=== PATIENT | male | born 1955 | race Caucasian/White ===

== ENCOUNTER 2022-04-10 06:46 | Day surgery (SDC) | payer OTHER ==
[~2022-04-10 06:46] MED LIST: CYCLOPENTOLATE 1% OPHTH DROPS 2 ML ONE; KETOROLAC 0.45% OPHTH DROPS ONE; PHENYLEPHRINE 2.5% OPHTH 2 ML DROPS ONE; PROPARACAINE 0.5% OPHTH DROPS 15 ML ONE
[2022-04-10] MEDS ORDERED: LACTATED RINGERS 1,000 ML IV ONE ×2 (06:50→08:42)
--- NOTE | 2022-04-10 07:14 | ANESTHESIA ---
Pre-Anesthesia VS, & Labs - Diagnosis L senile combined cataract - Procedure L cataract extraction with IOL Vital Signs: Temp Pulse Resp BP Pulse Ox O2 Flow Rate 37.1 C 51 L 16 166/72 H 100 04/10/22 07:07 04/10/22 07:07 04/10/22 07:07 04/10/22 07:07 04/10/22 07:07 Height: 6 ft Weight (kg): 120 kg Body Mass Index: 35.9 BMI Classification: Obese - NPO >8 hours Home Medications and Allergies Home Medications: Ambulatory Orders Aspirin [[place] Aspirin] 81 mg PO DAILY 04/09/22 Lisinopril [Zestril] 20 mg PO DAILY 04/09/22 Aspirin [[place] Aspirin] 81 mg PO DAILY 04/09/22 Lisinopril [Zestril] 20 mg PO DAILY 04/09/22 Allergies/Adverse Reactions: Allergies Allergy/AdvReac Type Severity Reaction Status Date / Time Penicillins Allergy Rash Verified 04/09/22 12:48 Anes History & Medical History - Anesthetic History Anesthesia Complications: reports: No previous complications Family history of Anesthesia Complications: Denies Family history of Malignant Hyperthermia: Denies - Medical History Cardiovascular: reports: Hypertension, Peripheral Vascular Disease Pulmonary: reports: None Gastrointestinal: reports: None Urinary: reports: Other Musculoskeletal: reports: None Endocrine/Autoimmune: reports: None Skin: reports: None - Surgical History Eyes Ears Nose Throat (EENT): reports: Tonsil/Adenoidectomy Orthopedic: reports: Other Exam General: Alert Dental: WNL Mouth Openin Fingerbreadth Neck Mobility: Normal Mallampati classification: II Thyromental Distance: 4-6 cm Respiratory: Normal breath sounds Cardiovascular: Regular rate Neurological: Normal speech Mental/Cognitive Status: Alert/Oriented X3 Cognitive Status: Within normal limits Plan Anesthesia Type: MAC Consent for Procedure(s) Verified and Reviewed: Yes Code Status: Attempt Resuscitation ASA classification: 2-Mild systemic disease Is this case an emergency?: No
[2022-04-10] MEDS ORDERED: TRIAMCIN/MOXIFLOX OPHTHALMIC 0.6 ML VIAL IO ONE ×3 (08:00→08:28)
[2022-04-10] MEDS ORDERED: EPINEPHrine 1 MG/ML AMP ONE (08:00)
[2022-04-10] MEDS ORDERED: MIDAZOLAM 2 MG/2 ML VIAL ONE (08:00)
[2022-04-10] MEDS ORDERED: TIMOLOL 0.5% OPHTH DROPS ONE (08:00)
[2022-04-10] MEDS ORDERED: BRIMONIDINE 0.2% OPHTH DROPS 5 ML ONE (08:00)
[2022-04-10] MEDS ORDERED: VANCOMYCIN OPHTH (TOPICAL) 10 MG/ML SYRINGE ONE (08:01)
[2022-04-10] MEDS ORDERED: BSS/LIDOCAINE/EPINEPHRINE 1 ML VIAL ONE (08:01)
[2022-04-10] MEDS ORDERED: TRYPAN BLUE 0.5 ML SYRINGE IO ONE ×2 (08:15→08:28)
[2022-04-10] MEDS ORDERED: GLYCOPYRROLATE 1 MG/5 ML VIAL ONE (08:24)
[2022-04-10] MEDS ORDERED: TIMOLOL 0.5% OPHTH DROPS OPTH ONE (08:27)
[2022-04-10] MEDS ORDERED: EPINEPHrine 1 MG/ML AMP IR ONE (08:27)
[2022-04-10] MEDS ORDERED: BRIMONIDINE 0.2% OPHTH DROPS 5 ML OPTH ONE (08:27)
[2022-04-10] MEDS ORDERED: VANCOMYCIN OPHTH (TOPICAL) 10 MG/ML SYRINGE TOP ONE (08:28)
[2022-04-10] MEDS ORDERED: BSS/LIDOCAINE/EPINEPHRINE 1 ML SYRINGE IO ONE (08:28)
[2022-04-10] MEDS ORDERED: PROPARACAINE 0.5% OPHTH DROPS 15 ML EACHEYE ONE (08:28)
[2022-04-10 09:00] VITALS: BP 142/78
--- NOTE | 2022-04-10 09:02 | OPERATIVE REPORT ---
Operative Report - Other Other Information/Narrative: Date of Surgery: Preop Dx: Complex, visually significant cataract left eye. Complex due to use of Trypan Blue to stain the anterior capsule prior to capsulorhexis because of the lack of a red reflex. This was the first cataract surgery. Postop Dx: Same Procedure: Phacoemulsification with posterior chamber intraocular lens implant left eye Surgeon: Dr. Francisco Smith Anesthesia: Monitored anesthesia care Complications: None Operative Indications: This is a 66-year-old M with progressive vision loss in the left eye due to 4+ nuclear sclerotic cataract. Best corrected visual acuity was 20/630 with glare to light perception vision in the left eye. Indications for surgery were: - Overall decrease in vision - Difficulty seeing words on a computer screen - Difficulty reading - Difficulty seeing words, closed captions, or game scores on TV - Difficulty seeing street signs - Difficulty driving in low light or at night - Difficulty driving at night because of headlights from other vehicles - Difficulty with glare or bright lights in any situation The patient was consented at length concerning the risks and benefits of cataract surgery after which the patient expressed a desire to proceed with surgery. Operative Procedure: The patient was taken into OR#3 and placed under monitored anesthesia care. A surgical time-out was conducted confirming correct patient, correct procedure, and correct surgical site. The patient was given topical anesthesia and then prepped and draped in the usual sterile fashion. The eye was entered at the 6 and 3 oclock positions. Intracameral Shugarcaine was injected into the anterior chamber followed by an air bubble. Under the air bubble Trypan Blue was injected in order to stain the capsule as there was a lack of a red reflex needed to perform the capsulotomy. The air bubble and Trypan Blue were flushed from the chamber using balance salt solution. Dispersive viscoelastic was injected into the anterior chamber. A discontinuous-tear curvilinear capsulorhexis was performed as the capsule was very thin and brittle and wanted to run out easily. The initial hemirhexis had to be restarted nasally and completed temporally. The second hemirhexis was started nasally, pulled counterclockwise inferiorly, and then completed temporally. The nucleus was hydrodissected and phacoemulsified. The nucleus was quite dense. The cortex was evacuated using automated infusion and aspiration. A cohesive viscoelastic was injected into the capsular bag and a 21.0 diopter intraocular lens was inserted into the bag. Infusion and aspiration were used to evacuate the viscoelastic materials from the eye. The wounds were hydrated and the eye inflated to physiologic pressure using balanced salt solution. Approximately 0.25ml of a mixture of triamcinolone and moxifloxacin was injected trans-sclerally into the vitreous in the inferotemporal quadrant using a 30 gauge cannula. An additional 0.55ml of a mixture of triamcinolone and moxifloxacin was injected subconjunctivally in the superior quadrant for infection and inflammation prophylaxis. Wound integrity was checked with Weck- Juanis sponges. The patient was taken from the operating room in good condition and given post-op instructions.
--- NOTE | 2022-04-10 13:39 | ANESTHESIA POST OP EVALUATION ---
Anesthesia Post Eval - Post Anesthesia Eval Vitals: Last Vital Signs Temp 36.6 C 04/10/22 09:00 Pulse 50 L 04/10/22 09:00 Resp 16 04/10/22 09:00 BP 142/78 H 04/10/22 09:00 Pulse Ox 100 04/10/22 09:00 O2 Flow Rate CV Function Including HR & BP: Stable Pain Control: Satisfactory Nausea & Vomiting: Negative Mental Status: Baseline Respiratory Status: Airway Patent Hydration Status: Satisfactory Anesthesia Complications: None
== END 2022-04-10 06:47 | disposition home or self-care (01) ==
LOC: SDS 06:46
PROVIDERS: ATTEND Ophthalmology
DX: H25.812 Combined forms of age-related cataract, left eye (principal); I10 Essential (primary) hypertension; E66.9 Obesity, unspecified; Z68.35 Body mass index [BMI] 35.0-35.9, adult; Z79.82 Long term (current) use of aspirin; Z79.899 Other long term (current) drug therapy
CPT/HCPCS: 66984; A9270; J3490; J7120

== ENCOUNTER 2025-04-04 14:39 | Observation (INO) ==
--- NOTE | 2025-04-04 14:41 | ED Physician Documentation ---
History of Present Illness Stated complaint Stated Complaint: GEN WEAKNESS Chief complaint Chief Complaint: General Additonal information Additional information: 69-year-old male with history of lung cancer with recent diagnosis of bladder cancer with mets patient of [facility] presents to emergency department for generalized weakness. Patient is brought in via EMS his caregiver called 9 for concerns of increased generalized weakness. Patient had chemo about a week ago and since then has been having pretty persistent diarrhea. He is unable to quantify how many episodes of diarrhea a day he has been having but he is not able to eat or drink anything he denies any fevers or chills no urinary symptoms mild nausea no vomiting with decreased p.o. intake no specific localized areas of pain just endorses some generalized bodyaches and pains. Meds/Allgy Home Medications Ambulatory Orders Medication Instructions Recorded Confirmed aspirin 81 mg chewable tablet (St 81 mg PO DAILY 04/0901/02/25 Lon Aspirin) acetaminophen 500 mg tablet 1,000 mg PO Q6H PRN 01/02/25 oxybutynin chloride 10 mg 10 mg PO QDAY 04/21/2401/02 tablet,extended release 24 hr simvastatin 40 mg tablet 40 mg PO QDAY 04/21/2401/02 wheelchairs 04/21/24 01/02/25 lisinopril 40 mg tablet 40 mg PO QDAY 12/06/2401/02 Allergies Allergies Allergy/AdvReac Type Severity Reaction Status Date / Time hydrocodone (From Vicodin) Allergy Severe Rash Verified 04/04/25 14:44 Penicillins Allergy Rash Verified 04/04/25 14:44 PFSH Active Problems All Active Problems (Updated 04/04/25 @ 18:16 by Gilberto Wheat DO) Abnormal urinalysis (Acute) Complication of chemotherapy (Acute) Diarrhea (Acute) DB (acute kidney injury) (Acute) DB (acute kidney injury) (Acute) Cerumen impaction (Acute) Right shoulder pain (Acute) Hypertension (Acute) Claudication of lower extremity (Acute) Bladder spasm (Chronic) Peripheral artery disease (Chronic) Bladder cancer (Chronic) Medical History Medical History (Updated 04/04/25 @ 18:16 by Gilberto Wheat DO) Malignant neoplasm of upper lobe, left bronchus or lung (~02/2024) tx via radiation, no biopsy done Obesity, class 1 Nephrolithiasis Stable angina Hx of nicotine dependence GERD (gastroesophageal reflux disease) Skin tag irritated/inflammed Risk for falls Adenocarcinoma of left lung Bilateral leg edema History of kidney stones CAD (coronary artery disease) Surgical History Surgical History History of lung surgery 11/24/22 left VATS wedge resection of stage 1A lung adenocarcinoma (Dr. Uribe) 03/23/23 right upper lobe wedge resection, LN sampling, thoracotomy, invasive adenocarcinoma (Dr. Uribe) History of transurethral resection of bladder tumor (TURBT) 04/22/23 right TURBT invasive bladder CA, clear History of bladder surgery bladder cancer resection x 2 (03/07/22, 03/06/23) History of surgical removal of ganglion cyst R foot ganglion cyst removal Hx of hemorrhoids Hx of hemorrhoids sx many years ago Hx of bilateral cataract extraction cataract sx b/l, Dr. Gurvinder Smith History of bronchoscopy 08/2022 bronchoscopy at [facility] Family History Family History Mother Heart disease CAD (coronary artery disease) Father Heart disease CAD (coronary artery disease) Social History Social History (Updated 01/02/25 @ 13:16 by Clifton Claudio, COLBY, [employer]EM[employer], [employer]INGS [employer]) Smoking Status: Former smoker If you are a former smoker, when did you quit? (Date/Year): 2011 How many cigarettes a day do you smoke? (20 cigarettes=1 Pk): 30 Second hand tobacco smoke exposure: No Do you dip or chew tobacco?: No Do you vape?: No Living arrangement: At home Marital Status: Living Condition: With spouse/s.o. Support Person: Yes Physical Activity: None Level: Assisted Home Mobility Equipment: Walker Do you feel safe in your home environment?: Yes History of physical, verbal, emotional, or financial abuse?: No ETOH Use: None Substance Use: denies use Exam Exam Vital Signs: Vital Signs x48h Temp Pulse Resp BP Pulse Ox 04/04/25 14:42 36.3 C L 93 19 142/71 H 97 Constitutional abnormal general appearance (appears older than stated age), no apparent distress, average body habitus, no limitations and alert HENMT normocephalic Eyes PERRL Neck/C-Spine visual inspection normal Lymph no lymphadenopathy noted Chest inspection of chest normal Respiratory breath sounds equal bilaterally and normal respiratory effort Cardiovascular normal heart rate noted Gastrointestinal abdomen normal to inspection and abdomen soft to palpation Genitourinary no CVA tenderness and bladder normal to palpation Back/Pelvis spine normal to inspection Extremities normal to inspection Neurology adult care manager II-XII intact Skin skin color normal Results Vitals Vitals: Vital Signs - 24 hr 04/04/25 14:42 Temperature 36.3 C L Temperature Source Temporal Artery Scan Pulse Rate 93 Respiratory Rate 19 Blood Pressure 142/71 H O2 Saturation 97 O2 Source Room air Pain Intensity 0 Oxygen O2 Source Room air Labs Labs: Laboratory Tests 04/04/25 15:31 WBC 5.7 RBC 4.66 L Hgb 14.8 Hct 43.5 MCV 93.3 MCH 31.8 H MCHC 34.0 RDW 14.8 Plt Count 40 L MPV 10.3 Neut # (Auto) 4.9 Lymph # (Auto) 0.5 L [place] # (Auto) 0.2 Eos # (Auto) 0.0 Baso # (Auto) 0.0 Absolute Nucleated RBC 0.00 Nucleated RBC % 0.0 Sodium 135 Potassium 3.9 Chloride 102 Carbon Dioxide 23 Anion Gap 10.0 BUN 64 H Creatinine 3.4 H Estimated GFR (MDRD) 18 L Glucose 164 H Calcium 8.0 L Magnesium 2.5 H Total Bilirubin 1.0 AST 324 H ALT 93 H Alkaline Phosphatase 45 Total Protein 6.1 L Albumin 3.3 Globulin 2.8 Albumin/Globulin Ratio 1.2 PD Medical Decision Making ED course ED course: 69-year-old male with metastatic lung and bladder cancer ([facility] patient) presents with severe generalized weakness and persistent diarrhea following recent chemotherapy, leading to severe volume depletion and inability to maintain oral intake. Laboratory findings reveal a severe Acute Kidney Injury (Creatinine 3.4), profound Thrombocytopenia (Plt 40), and significant Transaminitis (AST 324, ALT 93), along with associated electrolyte derangements (hypocalcemia). The patients acute presentation is attributed to severe dehydration (prerenal DB) superimposed on likely chemotherapy-related multi- organ toxicity (hematologic and hepatic). Given the nature of this multi-organ injury, the patient requires immediate admission for aggressive supportive care, fluid resuscitation, and specialized management of chemotherapy complications. Dr. Wheat has graciously agreed to accept the patient here for further hospitalization and fluid resuscitation and patient is agreeable to stay. He received 1L here in ER. Discharge Plan Discharge Patient Disposition: 66 [facility] DC/Xfer Clinical Impression: DB (acute kidney injury), Diarrhea, Complication of chemotherapy Interventions: ED Admission Assessment Last Done: 04/04/25 17:06 Vitals documented within 30 minutes of discharge?: Yes
--- OUTSIDE RECORDS SUMMARY | 2025-04-04 14:56 | EXTERNAL MEDICAL SUMMARY RPT | Continuity of Care Document ---
Author Organization [facility] Address [address] [place] [id number] Phone Problems date description facility 2025-02-09 00:06 Malignant neoplasm of bladder, unspecified [facility] Results/Labs test date facility value unit notes Result panel 1 WBC,URINE 2025-02-08 16:35 [facility] 0-3 /hpf (missing) UROBILINOGEN,URIN E 2025-02-08 16:35 [facility] 0.2 (NORMAL) e.u./dl (missing) SPECIFIC GRAVITY,URINE 2025-02-08 16:35 [facility] 1.030 (missing) (missing) PH,URINE 2025-02-08 16:35 [facility] 6.0 ph (missing) URINE MICROSCOPIC INDICATED? 2025-02-08 16:35 [facility] INDICATED (missing) (missing) AMORPHOUS SEDIMENT,UR 2025-02-08 16:35 [facility] Marked /lpf (missing) LEUKOCYTE ESTERASE, URINE 2025-02-08 16:35 [facility] NEGATIVE (missing) (missing) NITRITE,URINE 2025-02-08 16:35 [facility] NEGATIVE (missing) (missing) BILIRUBIN,URINE 2025-02-08 16:35 [facility] NEGATIVE (missing) Bilirubin can be influenced by color interference. Please correlate positive results with clinical presentation GLUCOSE, URINE (UA) 2025-02-08 16:35 [facility] NEGATIVE mg/dl (missing) KETONES,URINE (UA) 2025-02-08 16:35 [facility] NEGATIVE mg/dl (missing) PROTEIN,URINE 2025-02-08 16:35 [facility] NEGATIVE mg/dl (missing) UR CULTURE IF IND 2025-02-08 16:35 [facility] NOT INDICATED (missing) (missing) RBC,URINE 2025-02-08 16:35 [facility] None Seen /hpf (missing) SQUAMOUS EPITHELIAL CELL,UR 2025-02-08 16:35 [facility] RARE Squamous (missing) (missing) BACTERIA,URINE 2025-02-08 16:35 [facility] Rare /hpf (missing) OCCULT BLOOD,URINE 2025-02-08 16:35 [facility] TRACE (missing) (missing) CLARITY,URINE 2025-02-08 16:35 [facility] TURBID (missing) (missing) COLOR,URINE 2025-02-08 16:35 [facility] YELLOW (missing) URINE RANDOM Social History date description facility
[2025-04-04 15:44] LABS: HCT - HEMATOCRIT 43.5 % (42.0-52.0); HGB - HEMOGLOBIN 14.8 g/dL (14.0-18.0); MEAN PLATELET VOLUME 10.3 fL (7.4-11.4); NRBC ABSOLUTE COUNT (AUTO) 0.00 x10^3/uL; NUCLEATED RED BLOOD CELLS AUTO 0.0 /100WBC; PLT - PLATELET COUNT 40 10^3/uL (130-450); RED CELL DISTRIBUTION WIDTH 14.8 % (12.0-15.0)
[2025-04-04 15:57] LABS: ALT ALANINE AMINOTRANSFERASE 93.0 IU/L (10-60); AST ASPARTATE AMINOTRANSFERASE 324.0 IU/L (10-42); BUN - BLOOD UREA NITROGEN 64.0 mg/dL (6-20); CARBON DIOXIDE - CO2 23.0 mmol/L (21-32); CREATININE 3.4 mg/dL (0.6-1.3); GFR - MDRD 18.0 (>89)
--- NOTE | 2025-04-04 16:39 | HISTORY & PHYSICAL EXAMINATION ---
Chief Complaint Chief Complaint Chief Complaint: Weakness History of Present Illness Admitted From Admitted From:: ED History Obtained From Records Reviewed: [facility] History obtained from: EMR, Patient, ED provider Exam Limitations: Patient is encephalopathic History of Present Illness HPI Comment/Other: This is a 69-year-old male with a past medical history of recurrent high-grade urothelial carcinoma of the bladder on treatment and, CAD, PAD, T2DM, and HTN who presents with generalized weakness. He is found in the ED to have DB. His history is difficult to elicit as he is here alone. He is slow to respond to most questions. He phonates very weakly. He appears withdrawn versus depressed. Patient tells me that he started feeling unwell approximately 6 weeks ago. He is unclear on why he chose now to come into the hospital. He says that he normally feels poorly after he receives his chemotherapy treatments for his bladder cancer. These happen every 3 weeks per his report. He does not normally have diarrhea following his treatments. He has been having diarrhea at this time. He is unable to articulate how he receives his chemotherapy treatments. He gets them at the [facility]. He says that they supply transportation to his appointments. Notably [facility], he is perhaps getting [facility]. He endorses some intermittent shaking chills over the preceding days. Denies zachery fevers, chest pain, palpitations, dyspnea, abdominal pain or dysuria. He denies any difficulty with urination. Meds/Allgy Home Medications Ambulatory Orders Medication Instructions Recorded Confirmed aspirin 81 mg chewable tablet (St 81 mg PO DAILY 04/0901/02/25 Lon Aspirin) acetaminophen 500 mg tablet 1,000 mg PO Q6H PRN 01/02/25 oxybutynin chloride 10 mg 10 mg PO QDAY 04/21/2401/02 tablet,extended release 24 hr simvastatin 40 mg tablet 40 mg PO QDAY 04/21/2401/02 wheelchairs 04/21/24 01/02/25 lisinopril 40 mg tablet 40 mg PO QDAY 12/06/2401/02 Allergies Allergies Allergy/AdvReac Type Severity Reaction Status Date / Time hydrocodone (From Vicodin) Allergy Severe Rash Verified 04/04/25 14:44 Penicillins Allergy Rash Verified 04/04/25 14:44 PFSH Active Problems All Active Problems (Updated 04/04/25 @ 18:16 by Gilberto Wheat DO) Abnormal urinalysis (Acute) Complication of chemotherapy (Acute) Diarrhea (Acute) DB (acute kidney injury) (Acute) DB (acute kidney injury) (Acute) Cerumen impaction (Acute) Right shoulder pain (Acute) Hypertension (Acute) Claudication of lower extremity (Acute) Bladder spasm (Chronic) Peripheral artery disease (Chronic) Bladder cancer (Chronic) Medical History Medical History (Updated 04/04/25 @ 18:16 by Gilberto Wheat, ) Malignant neoplasm of upper lobe, left bronchus or lung (~02/2024) tx via radiation, no biopsy done Obesity, class 1 Nephrolithiasis Stable angina Hx of nicotine dependence GERD (gastroesophageal reflux disease) Skin tag irritated/inflammed Risk for falls Adenocarcinoma of left lung Bilateral leg edema History of kidney stones CAD (coronary artery disease) Surgical History Surgical History History of lung surgery 11/24/22 left VATS wedge resection of stage 1A lung adenocarcinoma (Dr. Uribe) 03/23/23 right upper lobe wedge resection, LN sampling, thoracotomy, invasive adenocarcinoma (Dr. Uribe) History of transurethral resection of bladder tumor (TURBT) 04/22/23 right TURBT invasive bladder CA, clear History of bladder surgery bladder cancer resection x 2 (03/07/22, 03/06/23) History of surgical removal of ganglion cyst R foot ganglion cyst removal Hx of hemorrhoids Hx of hemorrhoids sx many years ago Hx of bilateral cataract extraction cataract sx b/l, Dr. Gurvinder Smith History of bronchoscopy 08/2022 bronchoscopy at [facility] Family History Family History Mother Heart disease CAD (coronary artery disease) Father Heart disease CAD (coronary artery disease) Social History Social History (Updated 01/02/25 @ 13:16 by Clifton Claudio, DNP, SALES SUPPORT COORDINATOR, GUIDANCE CONSULTANT) Smoking Status: Former smoker If you are a former smoker, when did you quit? (Date/Year): 2011 How many cigarettes a day do you smoke? (20 cigarettes=1 Pk): 30 Second hand tobacco smoke exposure: No Do you dip or chew tobacco?: No Do you vape?: No Living arrangement: At home Marital Status: Living Condition: With spouse/s.o. Support Person: Yes Physical Activity: None Level: Independent Do you feel safe in your home environment?: Yes History of physical, verbal, emotional, or financial abuse?: No ETOH Use: None Substance Use: denies use Review of Systems Status of ROS: 10 or more systems reviewed and unremarkable except as noted in history and below Exam Exam Vital Signs: Vital Signs x48h Temp Pulse Pulse Resp BP BP Pulse Ox 04/04/25 17:29 36.6 C 89 30 H 143/67 H 92 04/04/25 16:39 36.8 C 91 16 162/72 H 96 04/04/25 14:42 36.3 C L 93 19 142/71 H 97 GEN: No acute distress, lying in bed, blank stare, orients to voice HEENT: NC/AT, normal appearance of external ears and nose. Hearing baseline. Cardiac: Regular rate and rhythm, no murmurs. No visible JVP elevation at 30 degrees Pulm: Lungs CTA bilaterally, no cough, no wheezes. Coarse rhonchi present in the left lung chaudhry. Abdomen: Obese, soft, nontender abdomen. No rebound tenderness or guarding. Suprapubic tenderness present Extremities: Moves all 4 extremities equally. Normal tone. Neuro: Face symmetric, CN II through XII intact grossly. Speech fluent. No focal neurologic deficits. Strength 5/5 at the hip bilaterally. Strength 5/5 at the shoulders bilaterally Psych: Mood euthymic with flattened affect. Questionable historian. Oriented to self, time, location, and situation Conclusion/Plan Problem List (1) DB (acute kidney injury): Plan: No prior labs in his record, including checking [place]. However the patient does not carry a diagnosis of CKD. His creatinine on admission is 3.4. His history of diarrhea is suggestive of a prerenal etiology. Other etiologies may include ATN/AIN from chemotherapy. Possible septicemia. He has a history of nephrolithiasis, but denies any symptoms. - Discussed with ED provider, admitted patient to observation status - Will check urine sodium, urine creatinine - Check urine protein quant - UA collected by ED - Will empirically start on LR at 100 mL/h - Follow-up BMP a.m. 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 Hemodynamically stable. Pulse 89, BP 143/67. Likely related to his chemotherapy. Does not recall taking any recent antibiotics. - Will get C. difficile studies - Fluids as above - Loperamide once C. difficile negative (3) Abnormal urinalysis: Plan: Patient with concern for cystitis. He has large leuk esterase, blood, and many bacteria seen on his UA collected in the ED. Notably there is also high protein, granular casts, tubular epithelial cells. Nitrite negative. Other than his bacteria, this may be all resultant of dehydration versus effects of chemotherapy in the setting of his DB. - Started empirically on ceftriaxone - Given systemic symptoms will get blood cultures - Follow-up CBC and BMP a.m. - Further urine studies as above - Follow-up urine culture - Will get chest x-ray to round out infectious workup given his rhonchi in the left lung chaudhry (4) Bladder cancer: Plan: Patient with longstanding history of bladder cancer. Apparently recurrent. He follows with urology and oncology at the [facility]. He is on treatment and has been over the last 6 weeks. He is unclear on what his treatment is. - Requested to get records from - Suspect that his abnormal UA may be artifact from his treatment. Qualifiers: Bladder location: unspecified site Qualified Code(s): C67.9 - Malignant neoplasm of bladder, unspecified (5) Peripheral artery disease: Plan: History of peripheral arterial disease, per outside records from April of last year it apparently worsened on aspirin. Unclear if he received surgical intervention. Await med rec Reasonable to resume aspirin and statin in the morning (6) CAD (coronary artery disease): Plan: Patient denies any chest pain or palpitations. He has no anginal equivalents. He has a history of CAD, but had an angiogram conducted in August of this year with minimal occlusion. Suspect nonocclusive CAD. - Continue ASA and statin as above (7) Hypertension: Plan: Patient is mildly hypertensive, 143/67. Appears he may be on lisinopril 40 mg daily. Await med rec Hold off on starting antihypertensives at this time Avoid treating asymptomatic hypertension in the hospitalized patient per ACC guidelines Qualifiers: Hypertension type: primary hypertension Qualified Code(s): I10 - Essential (primary) hypertension (8) Adenocarcinoma of left lung: Plan: Patient with history of left lung cancer in the upper lung per his outpatient medical records. He apparently had resection of this in 2022. History of smoking. - Noted Plan Patient was discussed with the ED, and decision was made to admit the patient. With his history of bladder cancer, he has a chronic illness that poses a threat to life and bodily function. His DB poses a threat to ongoing renal function. Tried to reach his twice by phone, her phone goes directly to [employer]. His son is listed on some of his outpatient records but no phone numbers available. Patient is unable to tell me his son's phone number. Lab Results 04/04/25 15:31 04/04/25 15:31
[2025-04-04 17:04] LABS: GLUCOSE, URINE (UA) NEGATIVE (NEGATIVE); KETONES,URINE (UA) NEGATIVE (NEGATIVE); OCCULT BLOOD,URINE LARGE (NEGATIVE)
[2025-04-04 17:14] LABS: AMORPHOUS SEDIMENT,UR Marked /LPF; SQUAMOUS EPITHELIAL CELL,UR FEW Squamous (<= Few); WBC CLUMPS,URINE PRESENT
[2025-04-04] MEDS ORDERED: SODIUM CHLORIDE FLUSH 0.9% 10 ML SYRINGE IVP PRN (17:29)
[2025-04-04] MEDS ORDERED: ONDANSETRON ODT 4 MG TABLET TL PRN (17:29)
[2025-04-04] MEDS: ACETAMINOPHEN 325 MG TABLET PO PRN (18:30)
[2025-04-04] MEDS: LACTATED RINGERS 1,000 ML IV SCH (18:31)
[2025-04-04] MEDS: SODIUM CHLORIDE FLUSH 0.9% 10 ML SYRINGE IVP SCH (18:31)
[2025-04-04] MEDS: cefTRIAXone 2 GM in SODIUM CHLORIDE 0.9% MINIBAG 100 ML IV STA (18:55)
[2025-04-04 19:13] LABS: TOTAL PROTEIN,URINE RANDOM 360.0 mg/dL
--- NOTE | 2025-04-04 20:23 | XRAY Report ---
PROCEDURE: XR Chest 1V INDICATIONS: Ronchi in Left lung TECHNIQUE: One view of the chest was acquired. COMPARISON: None. FINDINGS: Surgical changes and devices: None. Lungs and pleura: No pleural effusions or pneumothorax. Mild likely linear atelectasis versus scarring of the left mid/upper lung field. Otherwise, the lungs appear clear. Mediastinum: Mediastinal contours appear normal. Heart size is normal. Bones and chest wall: No suspicious bony lesions. Overlying soft tissues appear unremarkable. IMPRESSION: No acute cardiopulmonary process. Mild likely linear atelectasis versus scarring of the left mid/upper lung field. Recommend follow-up radiograph to assess stability. Reviewed by: Austyn Ramirez MD on 04/04/2025 8:20 PM PST Approved by: Austyn Ramirez MD on 04/04/2025 8:20 PM PST Station ID: [id number]
[2025-04-04] MEDS: ATORVASTATIN 10 MG TABLET PO SCH (20:49)
[2025-04-04] MEDS: HEPARIN 5,000 UNIT/ML VIAL SUBQ SCH (20:49)
[2025-04-04] MEDS: oxyCODONE 5 MG TABLET PO PRN (21:29)
[2025-04-05] MEDS: ONDANSETRON 4 MG/2 ML VIAL IVP PRN (00:24)
--- NOTE | 2025-04-05 01:32 | PROVIDER PROGRESS NOTE ---
Drapery Counselor Note Drapery Counselor Note Drapery Counselor Note: per nurse "PT, 69-year-old male , admitted with acute kidney injury. This RN just wanted to update on pt's recent assessment. Pt appeared to have decreased orientation with an intermittent blank stare, decreased eye movements (tracking slowly) and had complaining of chest pain. However, his answers were inconsistent and was changing answers with every question. Pt denies any pain at time and this RN noted pt had Oxycodone @ 2129. Last vitals 153/67, 97, 94% RA, resp 28. Do you want any labs drawn or other interventions. Please input any new orders if needed. Thank you" ct head ammonia
--- NOTE | 2025-04-05 02:01 | CT Report ---
PROCEDURE: CT Head WO INDICATIONS: ams TECHNIQUE: CT of the head was performed, without intravenous contrast. Reformats: Coronal and sagittal. For radiation dose reduction, the following was used: automated exposure control, adjustment of mA and/or kV according to patient size. COMPARISON: None. FINDINGS: Image quality: Diagnostic. The ventricular system and cortical sulci demonstrate atrophy, consistent for patient's stated age. There are areas of hypodensity in the periventricular and subcortical white matter. There is no acute intra or extra-axial fluid collection. No acute hemorrhage, mass lesion or midline shift. Brainstem is unremarkable. Globes are symmetrical. Sinuses are aerated. Osseous structures are intact. IMPRESSION: 1. No acute intracranial process. 2. Mild atrophy and chronic microvascular ischemic changes. Reviewed by: Padmini Cummins MD on 04/05/2025 1:58 AM [facility] Approved by: Padmini Cummins MD on 04/05/2025 1:58 AM [facility] Station ID: [id number]
--- NOTE | 2025-04-05 04:08 | PROVIDER PROGRESS NOTE ---
Tour Coordinator Note Tour Coordinator Note Tour Coordinator Note: per rn " [id number] [address] GRINDER reported to this RN that pt had bilateral leg twitching for about 30 seconds continues to have intermittent leg twitching. Still has blank stare but not able to answer questions. Noted change in pt vitals. HR 101, 93% on 2LNC BP 129/68, Respirations 32, temp is 38.3. Pt breathing shallow. Can we please get an order for blood cultures, CBC, lactic acid, Mg, and Ca. Would you also like a repeat chest x ray? Please see UA was positive and previously had 1 dose of rocephin in ED. Please input any new interventions and orders." repeat labs as per above cxr, resp viral panel as well repeat ua rocephin x [address] head without acute findings neuro checks ordered as well
[2025-04-05] MEDS: AZITHROMYCIN INJ 500 MG in SODIUM CHLORIDE 0.9% 250 ML IV STA (04:31)
[2025-04-05] MEDS: cefTRIAXone 1 GM VIAL IM STA (04:39)
[2025-04-05 04:42] LABS: HCT - HEMATOCRIT 39.9 % (42.0-52.0); HGB - HEMOGLOBIN 13.8 g/dL (14.0-18.0); MEAN PLATELET VOLUME 11.6 fL (7.4-11.4); NRBC ABSOLUTE COUNT (AUTO) 0.00 x10^3/uL; NUCLEATED RED BLOOD CELLS AUTO 0.0 /100WBC; PLT - PLATELET COUNT 38 10^3/uL (130-450); RED CELL DISTRIBUTION WIDTH 14.8 % (12.0-15.0)
[2025-04-05 04:53] LABS: ALT ALANINE AMINOTRANSFERASE 87 IU/L (10-60); AST ASPARTATE AMINOTRANSFERASE 287 IU/L (10-42); BUN - BLOOD UREA NITROGEN 69 mg/dL (6-20); CARBON DIOXIDE - CO2 19 mmol/L (21-32); CREATININE 4.0 mg/dL (0.6-1.3); GFR - MDRD 15 (>89); IONIZED CALCIUM IF INDICATED YES
[2025-04-05 05:08] LABS: VBG PH 7.442 (7.31-7.41)
[2025-04-05 05:25] LABS: INFLUENZA A- RESP PCR PANEL NOT DETECTED; INFLUENZA B - RESP PCR PANEL NOT DETECTED; RSV- RESP PCR PANEL NOT DETECTED; SARS-CoV-2 -RESP PCR PANEL NOT DETECTED
[2025-04-05 05:57] LABS: HCT - HEMATOCRIT 38.2 % (42.0-52.0); HGB - HEMOGLOBIN 13.0 g/dL (14.0-18.0); MEAN PLATELET VOLUME 11.8 fL (7.4-11.4); NRBC ABSOLUTE COUNT (AUTO) 0.00 x10^3/uL; NUCLEATED RED BLOOD CELLS AUTO 0.0 /100WBC; RED CELL DISTRIBUTION WIDTH 15.0 % (12.0-15.0)
[2025-04-05 06:05] LABS: PLT - PLATELET COUNT 35 10^3/uL (130-450)
[2025-04-05 06:12] LABS: BUN - BLOOD UREA NITROGEN 70.0 mg/dL (6-20); CARBON DIOXIDE - CO2 19.0 mmol/L (21-32); CREATININE 4.2 mg/dL (0.6-1.3); GFR - MDRD 14.0 (>89)
[2025-04-05 06:25] LABS: PLATELET ESTIMATE, MANUAL DECREASED (<130,000) (NORMAL); PLATELET MORPHOLOGY NORMAL APPEARANCE (NORMAL); RBC MORPHOLOGY (MULTIPLE) NORMAL APPEARANCE (NORMAL); WBC MORPHOLOGY (MULTIPLE) NORMAL APPEARANCE (NORMAL)
--- NOTE | 2025-04-05 07:10 | XRAY Report ---
PROCEDURE: XR Chest 1V INDICATIONS: sepsis TECHNIQUE: One view of the chest was acquired. COMPARISON: 04/04/2025 FINDINGS: Surgical changes and devices: None. Lungs and pleura: No pleural effusions or pneumothorax. No consolidation. Mediastinum: Mediastinal contours appear normal. Heart size is normal. Bones and chest wall: No suspicious bony lesions. Overlying soft tissues appear unremarkable. IMPRESSION: No acute cardiopulmonary process. Reviewed by: Rohan Forrest MD on 04/05/2025 7:06 AM PST Approved by: Rohan Forrest MD on 04/05/2025 7:06 AM PST Station ID: [id number]
--- NOTE | 2025-04-05 07:19 | PROVIDER PROGRESS NOTE ---
Subjective Prog Note Date Prog Note Date: 04/05/25 Prog Note Time: 07:15 Subjective Subjective: Patient had an eventful night. Nursing concerns overnight about altered mentation. He was more confused overnight. He additionally required 2 L of O2 via nasal cannula overnight. CT head was ordered. Lactate was ordered. A third set of blood cultures was ordered. A second dose of ceftriaxone was administered as well as azithromycin. Noted persistent thrombocytopenia, intervally worsened. SQH is on hold. His creatinine is worsened this morning from 3.4 on admission to 4. No output is recorded overnight. There is charted 1 void. Patient was oriented to self, location, time, and situation roughly this morning. He is only oriented to the month with respect to time. He was able to tell me his son's phone number. I was able to get some collateral from his son. His son, Sami, lives in [place]. He has children of his own. [place] The patient is a primary caregiver for his . They have an in-home caregiver that assist with both of them. Reji is normally very labeled. Ambulates does IADLs independently. He does not drive typically, and has been getting transportation assistance down to the [facility] for regular cancer treatments. Per the son, he gets treated for both lung and bladder cancer still. Caregiver helps take care of his in the meantime. Apparently since his last treatment, which sounds like the Adstiladrin infusion into his bladder last week, the patient's been much weaker, complaining of dysuria, complaining of frequent diarrhea. In this context, he had a fall on Thursday and was down for several hours. Paramedics were called to the house. Patient declined to come to the hospital at that time. Similar events occurred precipitating his transport to the hospital on 04/04 for this admission. Specifically son says that since his last treatment, he was peeing very frequently, having frequent episodes of diarrhea, had bladder spasms that were treated with Myrbetriq. Patient reports he still having some ongoing chills and dysuria. Continues to have loose stools. No samples been collected yet. Denies any chest pain, dyspnea, abdominal pain, nausea or vomiting. Current Medications Current Medications Current Medications: Current Medications Generic Name Dose Route Start Last Admin Trade Name Freq PRN Reason Stop Dose Admin Acetaminophen 650 mg 04/04/25 17:29 04/05/25 03:59 Acetaminophen 325 Mg Tablet PO 650 mg Q4HR PRN Administration Pain 1 to 4, or Fever Aspirin 81 mg 04/05/25 09:00 Aspirin Chew 81 Mg Tablet PO DAILY [facility] Atorvastatin Calcium 20 mg 04/04/25 21:00 04/04/25 20:49 Atorvastatin 10 Mg Tablet PO 20 mg QPM DIOMEDES Administration Lactated Ringer's 1,000 mls @ 100 mls/hr 04/04/25 17:04/05/25 04:37 Lr IV 100 mls/hr .Q10H DIOMEDES Administration Ondansetron HCl 4 mg 04/04/25 17:29 Ondansetron Odt 4 Mg Tablet TL Q6HR PRN Nausea / Vomiting Ondansetron HCl 4 mg 04/04/25 17:29 04/05/25 00:24 Ondansetron 4 Mg/2 Ml Vial IVP 4 mg Q6HR PRN Administration Nausea / Vomiting Oxycodone HCl 5 mg 04/04/25 21:03 04/04/25 21:29 Oxycodone 5 Mg Tablet PO 5 mg Q4HR PRN Administration Moderate Pain (Level 4-6) Sodium Chloride 10 ml 04/04/25 17:29 Sodium Chloride Flush 0.9% 10 Ml Syringe IVP PRN PRN NEEDED PER PROVIDER ORDERS Sodium Chloride 10 ml 04/04/25 17:29 04/05/25 04:18 Sodium Chloride Flush 0.9% 10 Ml Syringe IVP 10 ml 0100,[id number],1700 [facility] Administration Solifenacin 5 mg 04/05/25 09:00 Solifenacin Succinate 5 Mg Tablet PO DAILY [facility] Objective Vital Signs/Intake & Output Reviewed Vital Signs: Yes Vital Signs: Vital Signs x48h Temp Pulse Resp BP Pulse Ox O2 Flow Rate 04/05/25 05:34 90 112/60 04/05/25 04:52 100/62 04/05/25 04:30 37.1 C 97 04/05/25 04:19 101 H 32 H 113/67 04/05/25 04:08 101 H 113/67 04/05/25 04:00 101 H 130/72 04/05/25 03:48 94 2 04/05/25 03:46 38.3 C H 100 32 H 129/68 87 L 04/04/25 23:51 36.7 C 94 24 150/67 H 96 Intake & Output: Intake & Output 04/02/25 04/03/25 04/04/25 04/05/25 23:59 23:59 23:59 23:59 Intake Total 360 / 360 1250 / 1250 Balance 360 / 360 1250 / 1250 Weight (kg) 111 kg Objective Comments/Other: GEN: No acute distress, sitting up in bed. Awake and alert. HEENT: NC/AT, normal appearance of external ears and nose. Hearing baseline. Cardiac: Regular rate and rhythm, no murmurs. Euvolemic on exam. Pulm: Lungs CTA bilaterally, no cough, no wheezes. No adventitial lung sounds. Normal effort on room air. Abdomen: Obese, soft, nontender. No fluid wave. Extremities: Moves all 4 extremities equally. Normal tone. Neuro: Face symmetric, CN II through XII intact grossly. Speech fluent Strength 5/5 in bilateral upper extremity at the shoulder and elbow Strength 5/5 bilaterally in the lower extremity at the hip and knee Normal [id number] though slow Gait exam deferred Psych: Mood euthymic. Affect flattened. Oriented x 4. Very slow to respond. Lab Results 04/05/25 05:40 04/05/25 05:40 Other Labs: Lab Results x24hrs 04/05/25 04/05/25 04/05/25 Range/Units 05:40 04:26 04:26 WBC 4.8 5.5 (4.8-10.8) x10^3/uL RBC 4.12 L 4.34 L (4.70-6.10) 10^6/uL Hgb 13.0 L 13.8 L (14.0-18.0) g/dL Hct 38.2 L 39.9 L (42.0-52.0) % MCV 92.7 91.9 (80.0-94.0) fL MCH 31.6 H 31.8 H (27.0-31.0) pg MCHC 34.0 34.6 (32.0-36.0) g/dL RDW 15.0 14.8 (12.0-15.0) % Plt Count 35 L* 38 L (130-450) 10^3/uL MPV 11.8 H 11.6 H (7.4-11.4) fL Neut # (Auto) 4.1 4.7 (1.5-6.6) 10^3/uL Lymph # (Auto) 0.4 L 0.5 L (1.5-3.5) 10^3/uL Erath # (Auto) 0.2 0.3 (0.0-1.0) 10^3/uL Eos # (Auto) 0.0 0.0 (0.0-0.7) 10^3/uL Baso # (Auto) 0.0 0.0 (0.0-0.1) 10^3/uL Absolute Nucleated RBC 0.00 0.00 x10^3/uL Band Neuts % (Manual) Not Reportable Abnorm Lymph % (Manual) Not Reportable Nucleated RBC % 0.0 0.0 /100WBC Neutrophils # (Manual) Not Reportable Lymphocytes # (Manual) Not Reportable Monocytes # (Manual) Not Reportable Eosinophils # (Manual) Not Reportable Basophils # (Manual) Not Reportable Differential Comment MANUAL=AUTO DIFF WBC Morphology NORMAL APPEARANCE (NORMAL) Platelet Estimate DECREASED (<130,000) (NORMAL) Platelet Morphology NORMAL APPEARANCE (NORMAL) RBC Morph Micro Appear NORMAL APPEARANCE (NORMAL) VBG pH 7.442 H (7.31-7.41) Ionized Calcium YES 1.06 L (1.09-1.30) mmol/L Sodium 134 L 134 L (135-145) mmol/L Potassium 3.7 3.9 (3.5-4.5) mmol/L Chloride 105 104 (101-111) mmol/L Carbon Dioxide 19 L 19 L (21-32) mmol/L Anion Gap 10.0 11.0 (6-13) BUN 70 H 69 H (6-20) mg/dL Creatinine 4.2 H 4.0 H (0.6-1.3) mg/dL Estimated GFR (MDRD) 14 L 15 L (>89) Glucose 126 H 123 H (74-104) mg/dL POC Whole Bld Glucose (70-100) mg/dL Lactic Acid 1.1 (0.5-2.2) mmol/L Calcium 7.4 L 7.6 L (8.5-10.3) mg/dL Magnesium 2.5 H (1.7-2.3) mg/dL Total Bilirubin 1.0 (0.2-1.0) mg/dL AST 287 H (10-42) IU/L ALT 87 H (10-60) IU/L Alkaline Phosphatase 50 (42-121) IU/L Ammonia (18-72) umol/L Total Protein 5.8 L (6.4-8.9) g/dL Albumin 3.2 (3.2-5.5) g/dL Globulin 2.6 (2.1-4.2) g/dL Albumin/Globulin Ratio 1.2 (1.0-2.2) Urine Color Urine Clarity (CLEAR) Urine pH (5.0-7.5) PH Ur Specific Merritt (1.002-1.030) Urine Protein (NEGATIVE) mg/dL Urine Glucose (UA) (NEGATIVE) mg/dL Urine Ketones (NEGATIVE) mg/dL Urine Occult Blood (NEGATIVE) Urine Nitrite (NEGATIVE) Urine Bilirubin (NEGATIVE) Urine Urobilinogen (NORMAL) E.U./dL Ur Leukocyte Esterase (NEGATIVE) Urine RBC (0-5) /HPF Urine WBC (0-3) /HPF Urine WBC Clumps Ur Epithelial Cells (<= Few) /HPF Ur Squamous Epith Cells (<= Few) Amorphous Sediment /LPF Urine Bacteria (None Seen) /HPF Urine Casts /LPF Ur Microscopic Review Urine Culture Comments U Random Total Protein mg/dL Urine Creatinine mg/dL Urine Sodium mmol/L Nasal Influenza B PCR Nasal Influenza A PCR Nasal RSV (PCR) Nasal SARS-CoV-2 (PCR) 04/05/25 04/05/25 04/05/25 Range/Units 04:10 02:21 02:03 WBC (4.8-10.8) x10^3/uL RBC (4.70-6.10) 10^6/uL Hgb (14.0-18.0) g/dL Hct (42.0-52.0) % MCV (80.0-94.0) fL MCH (27.0-31.0) pg MCHC (32.0-36.0) g/dL RDW (12.0-15.0) % Plt Count (130-450) 10^3/uL MPV (7.4-11.4) fL Neut # (Auto) (1.5-6.6) 10^3/uL Lymph # (Auto) (1.5-3.5) 10^3/uL Erath # (Auto) (0.0-1.0) 10^3/uL Eos # (Auto) (0.0-0.7) 10^3/uL Baso # (Auto) (0.0-0.1) 10^3/uL Absolute Nucleated RBC x10^3/uL Band Neuts % (Manual) Abnorm Lymph % (Manual) Nucleated RBC % /100WBC Neutrophils # (Manual) Lymphocytes # (Manual) Monocytes # (Manual) Eosinophils # (Manual) Basophils # (Manual) Differential Comment WBC Morphology (NORMAL) Platelet Estimate (NORMAL) Platelet Morphology (NORMAL) RBC Morph Micro Appear (NORMAL) VBG pH (7.31-7.41) Ionized Calcium (1.09-1.30) mmol/L Sodium (135-145) mmol/L Potassium (3.5-4.5) mmol/L Chloride (101-111) mmol/L Carbon Dioxide (21-32) mmol/L Anion Gap (6-13) BUN (6-20) mg/dL Creatinine (0.6-1.3) mg/dL Estimated GFR (MDRD) (>89) Glucose (74-104) mg/dL POC Whole Bld Glucose 112 (70-100) mg/dL Lactic Acid (0.5-2.2) mmol/L Calcium (8.5-10.3) mg/dL Magnesium (1.7-2.3) mg/dL Total Bilirubin (0.2-1.0) mg/dL AST (10-42) IU/L ALT (10-60) IU/L Alkaline Phosphatase (42-121) IU/L Ammonia 47.2 (18-72) umol/L Total Protein (6.4-8.9) g/dL Albumin (3.2-5.5) g/dL Globulin (2.1-4.2) g/dL Albumin/Globulin Ratio (1.0-2.2) Urine Color Urine Clarity (CLEAR) Urine pH (5.0-7.5) PH Ur Specific Merritt (1.002-1.030) Urine Protein (NEGATIVE) mg/dL Urine Glucose (UA) (NEGATIVE) mg/dL Urine Ketones (NEGATIVE) mg/dL Urine Occult Blood (NEGATIVE) Urine Nitrite (NEGATIVE) Urine Bilirubin (NEGATIVE) Urine Urobilinogen (NORMAL) E.U./dL Ur Leukocyte Esterase (NEGATIVE) Urine RBC (0-5) /HPF Urine WBC (0-3) /HPF Urine WBC Clumps Ur Epithelial Cells (<= Few) /HPF Ur Squamous Epith Cells (<= Few) Amorphous Sediment /LPF Urine Bacteria (None Seen) /HPF Urine Casts /LPF Ur Microscopic Review Urine Culture Comments U Random Total Protein mg/dL Urine Creatinine mg/dL Urine Sodium mmol/L Nasal Influenza B PCR NOT DETECTED Nasal Influenza A PCR NOT DETECTED Nasal RSV (PCR) NOT DETECTED Nasal SARS-CoV-2 (PCR) NOT DETECTED 04/04/25 04/04/25 04/04/25 Range/Units 16:33 16:33 16:33 WBC (4.8-10.8) x10^3/uL RBC (4.70-6.10) 10^6/uL Hgb (14.0-18.0) g/dL Hct (42.0-52.0) % MCV (80.0-94.0) fL MCH (27.0-31.0) pg MCHC (32.0-36.0) g/dL RDW (12.0-15.0) % Plt Count (130-450) 10^3/uL MPV (7.4-11.4) fL Neut # (Auto) (1.5-6.6) 10^3/uL Lymph # (Auto) (1.5-3.5) 10^3/uL Erath # (Auto) (0.0-1.0) 10^3/uL Eos # (Auto) (0.0-0.7) 10^3/uL Baso # (Auto) (0.0-0.1) 10^3/uL Absolute Nucleated RBC x10^3/uL Band Neuts % (Manual) Abnorm Lymph % (Manual) Nucleated RBC % /100WBC Neutrophils # (Manual) Lymphocytes # (Manual) Monocytes # (Manual) Eosinophils # (Manual) Basophils # (Manual) Differential Comment WBC Morphology (NORMAL) Platelet Estimate (NORMAL) Platelet Morphology (NORMAL) RBC Morph Micro Appear (NORMAL) VBG pH (7.31-7.41) Ionized Calcium (1.09-1.30) mmol/L Sodium (135-145) mmol/L Potassium (3.5-4.5) mmol/L Chloride (101-111) mmol/L Carbon Dioxide (21-32) mmol/L Anion Gap (6-13) BUN (6-20) mg/dL Creatinine (0.6-1.3) mg/dL Estimated GFR (MDRD) (>89) Glucose (74-104) mg/dL POC Whole Bld Glucose (70-100) mg/dL Lactic Acid (0.5-2.2) mmol/L Calcium (8.5-10.3) mg/dL Magnesium (1.7-2.3) mg/dL Total Bilirubin (0.2-1.0) mg/dL AST (10-42) IU/L ALT (10-60) IU/L Alkaline Phosphatase (42-121) IU/L Ammonia (18-72) umol/L Total Protein (6.4-8.9) g/dL Albumin (3.2-5.5) g/dL Globulin (2.1-4.2) g/dL Albumin/Globulin Ratio (1.0-2.2) Urine Color YELLOW Urine Clarity CLOUDY (CLEAR) Urine pH 6.0 (5.0-7.5) PH Ur Specific Merritt 1.025 (1.002-1.030) Urine Protein 300 H (NEGATIVE) mg/dL Urine Glucose (UA) NEGATIVE (NEGATIVE) mg/dL Urine Ketones NEGATIVE (NEGATIVE) mg/dL Urine Occult Blood LARGE H (NEGATIVE) Urine Nitrite NEGATIVE (NEGATIVE) Urine Bilirubin NEGATIVE (NEGATIVE) Urine Urobilinogen 0.2 (NORMAL) (NORMAL) E.U./dL Ur Leukocyte Esterase MODERATE H (NEGATIVE) Urine RBC 6-10 H (0-5) /HPF Urine WBC >25 H (0-3) /HPF Urine WBC Clumps PRESENT Ur Epithelial Cells FEW Transitional FEW Renal Tubular (<= Few) /HPF Ur Squamous Epith Cells FEW Squamous (<= Few) Amorphous Sediment Marked /LPF Urine Bacteria Many H (None Seen) /HPF Urine Casts 6-10 Fine Granular 6-10 Course Granular /LPF Ur Microscopic Review INDICATED Urine Culture Comments INDICATED U Random Total Protein 360 mg/dL Urine Creatinine 107.7 mg/dL Urine Sodium 21.6 mmol/L Nasal Influenza B PCR Nasal Influenza A PCR Nasal RSV (PCR) Nasal SARS-CoV-2 (PCR) 04/04/25 Range/Units 15:31 WBC 5.7 (4.8-10.8) x10^3/uL RBC 4.66 L (4.70-6.10) 10^6/uL Hgb 14.8 (14.0-18.0) g/dL Hct 43.5 (42.0-52.0) % MCV 93.3 (80.0-94.0) fL MCH 31.8 H (27.0-31.0) pg MCHC 34.0 (32.0-36.0) g/dL RDW 14.8 (12.0-15.0) % Plt Count 40 L (130-450) 10^3/uL MPV 10.3 (7.4-11.4) fL Neut # (Auto) 4.9 (1.5-6.6) 10^3/uL Lymph # (Auto) 0.5 L (1.5-3.5) 10^3/uL Erath # (Auto) 0.2 (0.0-1.0) 10^3/uL Eos # (Auto) 0.0 (0.0-0.7) 10^3/uL Baso # (Auto) 0.0 (0.0-0.1) 10^3/uL Absolute Nucleated RBC 0.00 x10^3/uL Band Neuts % (Manual) Abnorm Lymph % (Manual) Nucleated RBC % 0.0 /100WBC Neutrophils # (Manual) Lymphocytes # (Manual) Monocytes # (Manual) Eosinophils # (Manual) Basophils # (Manual) Differential Comment WBC Morphology (NORMAL) Platelet Estimate (NORMAL) Platelet Morphology (NORMAL) RBC Morph Micro Appear (NORMAL) VBG pH (7.31-7.41) Ionized Calcium (1.09-1.30) mmol/L Sodium 135 (135-145) mmol/L Potassium 3.9 (3.5-4.5) mmol/L Chloride 102 (101-111) mmol/L Carbon Dioxide 23 (21-32) mmol/L Anion Gap 10.0 (6-13) BUN 64 H (6-20) mg/dL Creatinine 3.4 H (0.6-1.3) mg/dL Estimated GFR (MDRD) 18 L (>89) Glucose 164 H (74-104) mg/dL POC Whole Bld Glucose (70-100) mg/dL Lactic Acid (0.5-2.2) mmol/L Calcium 8.0 L (8.5-10.3) mg/dL Magnesium 2.5 H (1.7-2.3) mg/dL Total Bilirubin 1.0 (0.2-1.0) mg/dL AST 324 H (10-42) IU/L ALT 93 H (10-60) IU/L Alkaline Phosphatase 45 (42-121) IU/L Ammonia (18-72) umol/L Total Protein 6.1 L (6.4-8.9) g/dL Albumin 3.3 (3.2-5.5) g/dL Globulin 2.8 (2.1-4.2) g/dL Albumin/Globulin Ratio 1.2 (1.0-2.2) Urine Color Urine Clarity (CLEAR) Urine pH (5.0-7.5) PH Ur Specific Merritt (1.002-1.030) Urine Protein (NEGATIVE) mg/dL Urine Glucose (UA) (NEGATIVE) mg/dL Urine Ketones (NEGATIVE) mg/dL Urine Occult Blood (NEGATIVE) Urine Nitrite (NEGATIVE) Urine Bilirubin (NEGATIVE) Urine Urobilinogen (NORMAL) E.U./dL Ur Leukocyte Esterase (NEGATIVE) Urine RBC (0-5) /HPF Urine WBC (0-3) /HPF Urine WBC Clumps Ur Epithelial Cells (<= Few) /HPF Ur Squamous Epith Cells (<= Few) Amorphous Sediment /LPF Urine Bacteria (None Seen) /HPF Urine Casts /LPF Ur Microscopic Review Urine Culture Comments U Random Total Protein mg/dL Urine Creatinine mg/dL Urine Sodium mmol/L Nasal Influenza B PCR Nasal Influenza A PCR Nasal RSV (PCR) Nasal SARS-CoV-2 (PCR) Diagnostic Imaging Diagnostic Imaging Results: positive Final report reviewed and Read independently Diagnostic Imaging Comments: CT head from overnight does not reveal any acute bleeds or processes. No subacute strokes noted. Second chest x-ray shot overnight does not reveal any acute pulmonary processes. Stable scarring in the setting of his prior resection. Assessment/Plan Problem List (1) DB (acute kidney injury): Impression: Intervally worsened. Creatinine from 3.4-4.2. Reportedly no urine output overnight. Questionably as there is nursing report of a void but no charted volume. Continues on IV maintenance fluids. On admission, creatinine was 3.4. Early urine studies show a Kathi of 0.5%, suggestive of prerenal etiology. Interestingly he does have heavy proteinuria, not quite nephrotic range at 3.4 g - Will give one-time IV bolus of 500 mL - If remains anuric, will need to transfer us to a center with ONCOLOGY PATIENT NAVIGATOR - If DB remains worsening or uremia worsens, will need transfer for ONCOLOGY PATIENT NAVIGATOR. - Trend BMP this afternoon and tomorrow morning - Avoid nephrotoxins as able - Treat infection as below (2) Metabolic encephalopathy: Impression: Patient has an unusual metabolic encephalopathy. With some collateral from his son, it is clear that he is far from his baseline. He is normally quite sharp. He has been slow since his last chemotherapy treatment a week prior to admission. His son is afraid he had a stroke. He has no focal deficits. Most likely consistent with uremic encephalopathy versus a toxic encephalopathy. I still am awaiting his medication reconciliation. Possible that his Myrbetriq and DB have precipitated his encephalopathy. Normal CT head on 04/05 - Treat DB as above - Fluids as above - Treat infection as below - Continue to monitor as he metabolizes substances (3) Diarrhea: Impression: Apparently not having large volumes of diarrhea. Continues to have smear stools. They are unable to collect these yet. Continue to await stool sample. - Contact precautions in place - Await stool PCR and C. difficile - Fluids as above (4) Acute cystitis: Impression: With more information, more reliable narrative from the patient regarding dysuria, and reports of polyuria at home, this is most consistent with acute cystitis. He had a fever overnight in the early hours of 04/05 This in combination with a nephritic syndrome as above - Continue empiric therapy with ceftriaxone - Follow-up final cultures and sensitivities - Follow-up blood cultures, NGTD - CBC and BMP in a.m. - Discontinue azithromycin (5) Thrombocytopenia: Impression: Patient with chronic history of thrombocytopenia. His baseline from his outpatient lab seems to be around 100. Since his hospitalization has been 40- 35. This may be an acute exacerbation in setting of inflammatory response. Does not seem to be a known side effect of Adstiladrin. - Hold pharmacologic VTE prophylaxis, SCDs - Trend CBC a.m. - Transfuse platelets if <10,000 (6) Bladder cancer: Impression: Known history of bladder cancer. Has been recurrent. He has been trialed on multiple treatments. In review of his records, he has most recently been started on Adstiladrin which she had instilled immediately preceding his symptoms 1 week before admission - If he does transfer out for nephrology support, would be beneficial for him to go where his urologist is at at the [facility] - Reasonable to continuing formulary equivalent for oxybutynin. Qualifiers: Bladder location: unspecified site Qualified Code(s): C67.9 - Malignant neoplasm of bladder, unspecified (7) Peripheral artery disease: Impression: Patient with longstanding history of peripheral arterial disease. He was having symptoms including claudication at 1 time per his outside records. He is supposed to be following up with vascular surgery, but there is interventions are on hold in setting of his cancer treatments. - Continue ASA and statin (8) CAD (coronary artery disease): Impression: Not having any chest pain or palpitations. No dyspnea or any other anginal equivalents. Apparently has nonocclusive CAD. He had an normal angiogram in August 2024. - ASA and statin as above (9) Hypertension: Impression: Patient remains normotensive. Holding off on starting on antihypertensives in the setting of his diarrhea, hypovolemia, DB. [employer] appears he is on lisinopril 40 mg daily - Continue to monitor off of antihypertensives - Avoid treating asymptomatic hypertension in the hospitalized patient. Qualifiers: Hypertension type: primary hypertension Qualified Code(s): I10 - Essential (primary) hypertension (10) Adenocarcinoma of left lung: Impression: History of left lung adenocarcinoma that is apparently recurrent. He is on treatment for bladder cancer as above but his son says he is also getting treatment for lung cancer. No changes to that treatment plan per the son's understanding. He gets his lung cancer treatment and also at . Long history of smoking. Quit several years ago. - No acute intervention
[2025-04-05] MEDS: ASPIRIN CHEW 81 MG TABLET PO SCH (08:20)
[2025-04-05] MEDS: SOLIFENACIN SUCCINATE 5 MG TABLET PO SCH (08:20)
--- NOTE | 2025-04-05 11:24 | PHARMACY PROGRESS NOTE ---
Best Possible Medication History Admit Date and Time: 04/04/25 1632 Home Medications Medication Instructions Recorded Confirmed Type aspirin 81 mg chewable tablet (St 81 mg PO DAILY 04/0904/05/25 History Lon Aspirin) acetaminophen 500 mg tablet 1,000 mg PO Q6H PRN pain 1 06/22/23 04/05/25 History oxybutynin chloride 10 mg 10 mg PO QPM 04/21/24 History tablet,extended release 24 hr simvastatin 40 mg tablet 40 mg PO QPM 04/21/24 History wheelchairs 04/21/24 04/05/25 History lisinopril 40 mg tablet 40 mg PO QDAY 12/06/2404/05 History Processed by: Pharmacy Medications reviewed in ED?: No Medication History completed: Yes Patient Interview: Completed Secondary Source(s): Other family member and Physician records [facility] Statement: As the person ultimately responsible for medication therapy, providers are able to order a medication from an existing home medication list in [facility] via the "Reconcile Routine" prior to Confirmation of that medication by it support manager. Such practice is discouraged except when the physician, in their clinical judgment, deems that a medical need exists for a medication without regard to previous use.
[2025-04-05] MEDS: LACTATED RINGERS 500 ML IV ONE (11:40)
[2025-04-05 16:46] LABS: BUN - BLOOD UREA NITROGEN 79.0 mg/dL (6-20); CARBON DIOXIDE - CO2 20.0 mmol/L (21-32); CREATININE 5.1 mg/dL (0.6-1.3); GFR - MDRD 11.0 (>89)
--- NOTE | 2025-04-05 17:18 | ADVANCE CARE PLANNING NOTE ---
Advance Care Planning Planning Encounter Date: 04/05/25 Time: 17:12 Parties in Attendance: Patient's son, Keyur, by phone Multiple attempts to reach patient's by phone, she did not answer. Decisional Capacity of the Patient: Acutely encephalopathic Diagnosis for Encounter (1) DB (acute kidney injury): (2) Metabolic encephalopathy: (3) Diarrhea: (4) Acute cystitis: (5) Thrombocytopenia: (6) Bladder cancer: Qualifiers: Bladder location: unspecified site Qualified Code(s): C67.9 - Malignant neoplasm of bladder, unspecified (7) Peripheral artery disease: (8) CAD (coronary artery disease): (9) Hypertension: Qualifiers: Hypertension type: primary hypertension Qualified Code(s): I10 - Essential (primary) hypertension (10) Adenocarcinoma of left lung: Encounter Subjective/Patient's Story: Patient is a 69-year-old male who lives on [address]. He and his live in [place]. 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 With his own cancer journey, they have a hired caregiver that assists as well primarily while the patient is at his cancer treatments. He gets his cancer treatments at the [facility]. They transport him down for treatment. Sounds like he goes once or twice a week. Normally he is reasonably able. He conducts his own ADLs. Conducts his own IADLs. His son is very familiar with his mother's medical history, but Reji is always managed his own medical needs. Patient has a son and a daughter both of whom live out of [facility]. The patient is a . He is service-connected. He is primarily [facility]. Sees providers in the community. Objective/Medical Story: Patient has had a several years journey with recurrent bladder cancer as well as a lung cancer. He had a long smoking history. He quit smoking cigarettes several years ago. He does not use other tobacco products. He has completed several treatments for his bladder cancer, but never remains in remission. He is also developed a peripheral arterial disease. He was having some limb claudi cation symptoms and hopes to get intervention on these, but it is pending his treatment of his malignancies. His son says that treatment of his PAD has been "on hold". His most recent PET scan did show what is concerning for recurrence of the lung cancer that was excised in 2022. His son thinks he is on treatment for lung lung cancer as well as his bladder cancer. He presents for this hospitalization after a recent change in his bladder cancer treatment. He may be having adverse reaction versus an unfortunate consequent urinary tract infection. This all culminated in a ground-level fall on 03/31 which the patient was on the ground for many hours before his called 911. The paramedics arrived, and the patient apparently told them he did not want to go to the hospital. He was found to be unresponsive on 04/04 which prompted coming into this hospitalization. All of this has caused a profound kidney injury which is not improving with fluid resuscitation. He is oliguric at this time. Goals of Care: The patient is unable to clearly tell me what his goals are. He says he would want resuscitative efforts. His son says that he would likely opt for resuscitative efforts, but says that he has not had any conversations with his father about this. Despite his cancer treatments, his son feels it is unlikely that he has any formal document that explains his end-of-life wishes. He has always been told by his oncologist that his cancers are very treatable, and has related to his son at least that his prognosis is good. Plan: - Patient's is legal next of kin - I have encouraged them to fill out POA paperwork naming the son as decision- maker - Patient is full code/full treatment - Clarified that if the patient were to need to be transferred for dialysis, he would be amenable to this. Son believes so too. Patient endorses that they are full code/full treatment during this admission. No POLST was filled out during this admission as a full code POLST on file may lead to further ambiguity if the patient's wishes are to change in the future. Given that full code and full treatment is the default mode for the healthcare system, no clinical utility is seen and filling out a full code POLST and was not performed during this hospitalization. Code Status: Attempt Resuscitation Time spent on advance care plannin
--- NOTE | 2025-04-05 19:37 | CT Report ---
PROCEDURE: CT Abdomen/Pelvis WO INDICATIONS: DB, eval for hydro TECHNIQUE: A CT scan of the abdomen and pelvis was performed without the use of intravenous contrast. Images were recorded and evaluated at appropriate window settings. Reformats: coronal and sagittal. For radiation dose reduction, the following was used: automated exposure control, adjustment of mA and/or kV according to patient size. COMPARISON: None. FINDINGS: Image quality: Diagnostic. Lower chest: Mild cardiomegaly. Minimal bibasilar atelectasis.. Liver: Suspect cirrhotic change with prominence of the left lobe and possible surface nodularity. Gallbladder: No radiopaque stones or wall thickening. Biliary tree: No intrahepatic or extrahepatic dilation, accounting for age. Spleen: Splenomegaly Pancreas: No pancreatic ductal dilation. Adrenals: No adrenal nodule. Kidneys and ureters: No hydronephrosis. No contour-deforming mass. Stomach, bowel and peritoneum: No gastric or small bowel dilation. No abnormal wall thickening. No pathologic free fluid. Severe sigmoid diverticulosis without CT evidence of acute diverticulitis. Normal appendix. Lymph nodes: No central or retroperitoneal adenopathy. Vessels: No infrarenal aortic aneurysm. Severe atherosclerotic calcifications of the aorta and iliacs. Suspect hemodynamically significant bilateral iliac stenotic disease. Reproductive organs: Prostatomegaly. Bladder: Mild bladder wall thickening. Pelvic lymph nodes: No adenopathy by size criteria. Bones: No aggressive osseous abnormality. Other: Small bilateral fat-containing inguinal hernias. Fat-containing periumbilical hernia. IMPRESSION: No hydronephrosis or obstructing renal stone. Suspect cirrhosis. Splenomegaly. Mild cardiomegaly. Mild bibasilar atelectasis. Severe sigmoid diverticulosis without CT evidence of acute diverticulitis. Suspect bilateral hemodynamically significant calcified iliac stenotic disease. Prostatomegaly with mild bladder wall thickening suggesting bladder outlet obstruction. Reviewed by: Rohan Forrest MD on 04/05/2025 7:33 PM PST Approved by: Rohan Forrest MD on 04/05/2025 7:33 PM PST Station ID: [id number]
--- NOTE | 2025-04-05 19:50 | Discharge Summary ---
Discharge Summary Admit Date: 04/04/25 Discharge Date: 04/05/25 Discharging Provider: Gilberto Wheat Primary Care Provider: Clifton Claudio Code Status: Attempt Resuscitation DIAGNOSES Discharge Diagnoses with Status of Each Condition: ## Oliguric DB (acute kidney injury) Creatinine increased from 3.4 to 5.1 over the first 24 hours of admission. Urine output over that time was <300mL. Got 500mL fluid bolus and has put out an additional ~100mL. Has around 150mL on bladder scan. Electrolytes holding stable (K normal). Uremia increased, may explain the patients slowed mentation. Has been getting IV fluids since admission. Orally getting another ~1500mL since admission. Attempts at renal ultrasound were unsuccessful. CT AP shows no hydronephrosis or obstructive process. Urine studies show a FeNa of 0.5%, suggestive of prerenal etiology. Interestingly he does have heavy proteinuria, not quite nephrotic range at 3.4 g. Suspect mostly ATN in the setting of either prolonged dehydration or sepsis. - Continue maintenance fluids - Not urgently needing dialysis but imminent if he remains oliguric - Transfer to center with renal support and [facility] - Treat infection as below ## GN Bacteremia ## GNR Bacteruria Patient had elevated procalcitonin on admission and minimally elevated leukocytosis. He endorses dysuria since his procedure last week. His blood cultures and urine cultures are all growing gram negative species. PCR of blood cultures Growing Klebsiella pneumonia Suspect that Klebsiella is what is growing in all of his cultures. Intriguingly this is oftentimes nosocomial. Suspect translocation sometime during his procedure. - Continue IV ceftriaxone daily, tentatively 14-day course - Continue to follow for susceptibilities - Monitor CBC and follow vitals, currently nonseptic physiology ## Metabolic encephalopathy Patient has an unusual metabolic encephalopathy. With some collateral from his son, it is clear that he is far from his baseline. He is normally quite sharp. He has been slow since his last chemotherapy treatment a week prior to admission. His son is afraid he had a stroke. He has no focal deficits. This is either uremic encephalopathy versus encephalopathy in the setting of his sepsis. He does seem to be clearing as of 04/05. This is despite his renal function getting worse as above. More supportive of related to sepsis. Normal CT head on 04/05 - Treat DB And infection as above ## Diarrhea: Patient reported diarrhea initially on admission. He is not having any diarrhea since he is admitted. He is having some smears stools but nothing formed. - Discontinue precautions, treat infections as above ## Thrombocytopenia Patient with chronic history of thrombocytopenia. His baseline from his outpatient lab seems to be around 100. Since his hospitalization has been 40- 35. This may be an acute exacerbation in setting of inflammatory response. Does not seem to be a known side effect of Adstiladrin. - Hold pharmacologic VTE prophylaxis, SCDs - Trend CBC - Transfuse platelets if <10,000 ## Bladder cancer Known history of bladder cancer. Has been recurrent. He has been trialed on multiple treatments. In review of his records, he has most recently been started on Adstiladrin which she had instilled immediately preceding his symptoms 1 week before admission - Ideally transferred to as they have his records ## Peripheral artery disease: Patient with longstanding history of peripheral arterial disease. He was having symptoms including claudication at 1 time per his outside records. He is supposed to be following up with vascular surgery, but there is interventions are on hold in setting of his cancer treatments. - Continue ASA and statin ## CAD (coronary artery disease): Not having any chest pain or palpitations. No dyspnea or any other anginal equivalents. Apparently has nonocclusive CAD. He had an normal angiogram in August 2024. - ASA and statin as above ## Hypertension: Patient remains normotensive. Holding off on starting on antihypertensives in the setting of his diarrhea, hypovolemia, DB. ME[employer] SCRU[employer]ER appears he is on lisinopril 40 mg daily, Have not been able to obtain a reliable medication reconciliation - Continue to monitor off of antihypertensives - Avoid treating asymptomatic hypertension in the hospitalized patient. ## Adenocarcinoma of left lung History of left lung adenocarcinoma that is apparently recurrent. He is on treatment for bladder cancer as above but his son says he is also getting treatment for lung cancer. No changes to that treatment plan per the son's understanding. He gets his lung cancer treatment and also at . Long history of smoking. Quit several years ago. 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 He is found in the ED to have DB. His history is difficult to elicit as he is here alone. He is slow to respond to most questions. He phonates very weakly. He appears withdrawn versus depressed. Patient tells me that he started feeling unwell approximately 6 weeks ago. He is unclear on why he chose now to come into the hospital. He says that he normally feels poorly after he receives his chemotherapy treatments for his bladder cancer. These happen every 3 weeks per his report. He does not normally have diarrhea following his treatments. He has been having diarrhea at this time. He is unable to articulate how he receives his chemotherapy treatments. He gets them at the [facility]. He says that they supply transportation to his appointments. Notably he is [facility], he is perhaps getting transportation through the [facility]. He endorses some intermittent shaking chills over the preceding days. Denies zachery fevers, chest pain, palpitations, dyspnea, abdominal pain or dysuria. He denies any difficulty with urination. CONSULTS | PROCEDURES Consultations: None HOSPITAL COURSE Hospital Course: This is 69-year-old male with past medical history of high-grade urothelial carcinoma of the bladder, CAD, PAD, T2DM, HTN presenting for generalized weakness. In the ED he was found to have a profound DB. His story is further elicited by his son who says that he has felt unwell since he received a chemotherapy treatment 1 week ago. Believe this to be Adstiladrin. Since that installation into his bladder, he has had dysuria, felt generally unwell. He was possibly fever at home. Possible diarrhea at home. This culminated in a ground-level fall on 03/31 and the patient was on the ground for several hours. When EMS arrived, he refused transport to the ED. He then had a similar event on the day of admission and presented to the ED. Here he was found to have gram-negative bacteremia and bacteriuria. Blood cultures PCR is indicative of Klebsiella pneumonia. This is likely what is growing in all of his cultures. He has been on ceftriaxone since admission, getting an extra dose overnight reportedly because the patient looked "unwell". His renal function has continued to deteriorate. Over the first 24 hours of admission he put out 255 mL of urine. His creatinine increased from 3.4-5.1. His electrolytes are holding stable so far. Stat CT abdomen pelvis did not reveal any hydronephrosis or obstructive process. I am recommending him for transfer to a center that has nephrology support and can do renal replacement therapy if necessary. Discussed his case with [facility] transfer center. Urology at the [facility] has graciously accepted patient for transfer. He discharged in stable condition around midnight the evening of 04/05. ALLERGIES Allergies Allergy/AdvReac Type Severity Reaction Status Date / Time hydrocodone (From Vicodin) Allergy Severe Rash Verified 04/04/25 14:44 Penicillins Allergy Rash Verified 04/04/25 14:44 MEDICATIONS Ambulatory Orders Medication Instructions Recorded Confirmed aspirin 81 mg chewable tablet (St 81 mg PO DAILY 04/0904/05/25 Lon Aspirin) acetaminophen 500 mg tablet 1,000 mg PO Q6H PRN pain 1 06/22/23 04/05/25 oxybutynin chloride 10 mg 10 mg PO QPM 04/21/24 tablet,extended release 24 hr simvastatin 40 mg tablet 40 mg PO QPM 04/21/24 wheelchairs 04/21/24 04/05/25 lisinopril 40 mg tablet 40 mg PO QDAY 12/06/2404/05 PHYSICAL EXAM AT DISCHARGE Vital Signs: Vital Signs x48h Temp Pulse Resp BP Pulse Ox 04/05/25 23:39 37 C 90 24 162/73 H 94 LABS 04/05/25 05:40 04/05/25 16:19 DIAGNOSTIC IMAGING Diagnostic Imaging Results Comments: CT Abdomen Pelvis 04/05: No hydronephrosis or obstructing renal stone. Suspect cirrhosis. Splenomegaly. Mild cardiomegaly. Mild bibasilar atelectasis. Severe sigmoid diverticulosis without CT evidence of acute diverticulitis. Suspect bilateral hemodynamically significant calcified iliac stenotic disease. Prostatomegaly with mild bladder wall thickening suggesting bladder outlet obstruction. CXR 04/04: No acute cardiopulmonary process. Mild likely linear atelectasis versus scarring of the left mid/upper lung field. Qualitatively unchanged image, but read on repeat as no acute process. Head CT 04/05: No acute intracranial process. Mild atrophy and chronic microvascular changes. SEPSIS Current Stage of Sepsis: Severe sepsis Possible source of Sepsis: Genitourinary Sepsis Criteria: Recorded Temperature greater than 38.3C or Less than 36C, Recorded Heart Rate greater than 90 bpm, WBC count greater than 10% bands, WBC count greater than 12,000 or less than 4000 and Renal: urine output less than 0.5ml/kg/hr for 2 hours or creatinine gr FOLLOW UP Follow Up: Pending clinical course at . TIME SPENT Time Spent in Discharge (Minutes): 50 Discharge Plan Discharge Patient Disposition: 02 Transfer Acute Care Hosp Prescriptions: No Action aspirin [St Lon Aspirin] 81 MG tablet,chewable 81 mg PO DAILY acetaminophen 500 mg tablet 1,000 mg PO Q6H PRN (Reason: pain) oxybutynin chloride 10 mg tablet extended release 24hr 10 mg PO QPM simvastatin 40 mg tablet 40 mg PO QPM (DME) wheelchairs Device See Rx Instructions .Route Rx Instructions: As directed lisinopril 40 mg tablet 40 mg PO QDAY Patient Comments: per cardiology Interventions: Belongings Inventory Last Done: 04/04/25 18:00 Print Language: Serbian Stand Alone Forms: PCP List Follow-up Care: Clifton Claudio, COLBY, BALE SEWER, SIGNAL FITTER [Primary Care Provider, Family Practice] Report called to and time (if no answer, doc. time of each call attempted): Caroline patricio RN X1 attempt Vitals documented within 30 minutes of discharge?: Yes
--- NOTE | 2025-04-05 21:53 | Ultrasound Report ---
PROCEDURE: US Renal (Retroperitoneal) INDICATIONS: DB TECHNIQUE: Real-time scanning was performed of the retroperitoneal organs, with image documentation. COMPARISON: CT abdomen pelvis 04/05/2025. FINDINGS: Kidneys: Kidneys demonstrate mild increased echogenicity. Right kidney measures 11 point cm long; left kidney measures 12.5 cm long. No solid masses. No hydronephrosis. No shadowing stones. No complex renal cystic lesions which require dedicated follow up. Bladder: Pre-void bladder volume is 168 mL. Post-void not obtained secondary to inability to void. Pre-void images demonstrate possible focus of bladder wall thickening posteriorly. On pre-void images, only the left ureteral jet is noted with color Doppler interrogation. (Of note, ureteral jets may not be detectable in up to 25% of cases due to insufficient differences in specific gravity between ureteral and bladder urine). Prostate is prominent measuring 4.7 x 3.8 x 5.4 cm. Miscellaneous: No free abdominal fluid. IMPRESSION: Increased echogenicity suggestive of medical renal disease. Mild appearance of bladder wall thickening posteriorly. This could represent debris within the bladder, given limited evaluation secondary to inability to void. It is noted on recent CT exam, no definitive mass within that region is identified. However, follow-up with CT IVP on a nonemergent basis may be obtained as indicated. Reviewed by: Padmini Cummins MD on 04/05/2025 9:49 PM PST Approved by: Padmini Cummins MD on 04/05/2025 9:49 PM PST Station ID: [id number]
[2025-04-05 23:40] VITALS: BP 162/73; TEMP 98.6; O2SAT 94
[2025-04-06] MEDS ORDERED: cefTRIAXone 1 GM in SODIUM CHLORIDE 0.9% MINIBAG 100 ML IV SCH (09:00)
== END 2025-04-05 23:43 | disposition short-term general hospital (02) ==
LOC: ED 14:39 → MS2 14:39 → SUATTDRO 16:32 → MS2 17:06
PROVIDERS: ADMIT Student in an Organized Health Care Education/Training Program; ATTEND Student in an Organized Health Care Education/Training Program